=== PATIENT | female | born 1995 | race African-American/Black ===

== ENCOUNTER 2019-01-24 10:02 | Emergency (ER) | payer OTHER ==
[~2019-01-24] VITALS: Ht 172.7 cm; Wt 75.5 kg
[2019-01-24] MEDS ORDERED: LORAZEPAM 1 MG TABLET ONE (10:59)
[2019-01-24] MEDS ORDERED: LORAZEPAM 1 MG TABLET PO ONE (11:00)
--- NOTE | 2019-01-24 11:00 | NUR ---
PATIENT SEEN BY [facility].
--- NOTE | 2019-01-24 11:09 | NUR ---
Social service consult requested by Dr. Bazan for suicidal ideations with a plan to " run into traffic." Pt. is a 23 year old female who was brought to [facility] ED by her friend Alexander for having an anxiety attack with suicidal ideations. SW met with pt. bedside. Pt. is alert and oriented x 3. Pt. appeared very anxious. SW asked pt. to take deep breaths to calm her anxiety. Pt. states she has been paranoid and thinks people are listening to her conversations and following her. Pt. states she has been feeling this way for the past 5 years. Pt. has no prior suicidal attempts or psychiatric hospitalizations. Pt's father Jim Street resides in [place] and can be reached at . Pt. resides with her aunt in [place] and moved from [place] a month ago. Pt. currently works at [employer]. Pt. has a psychiatric diagnosis of Generalized Anxiety Disorder. Pt. is willing to go voluntary to [facility]. SW to fax clinical information to [facility] once lab results are in. DA Mays and Dr. Bazan have been notified of pt's discharge plan. Pt's father Jim will need to be notified regarding where pt. will be discharged. SW informed DA Mays regarding contacting pt's father.
[2019-01-24 11:18] LABS: APPEARANCE,URINE Clear (CLEAR); BILIRUBIN,URINE SMALL (NEGATIVE); BLOOD, URINE Negative Ery/uL (NEGATIVE); COLOR,URINE Yellow (YELLOW); KETONES,URINE >=160 (NEGATIVE); LEUKOCYTE ESTERASE ,URINE Small (NEGATIVE); NITRITE, URINE Negative (NEGATIVE); PH,URINE 6.5 (5.0-8.0); PROTEIN,URINE Trace mg/dl (NEGATIVE); UGLUCOSE Negative (NEGATIVE); UROBILINOGEN,URINE 0.2 EU/dL (0.2)
[2019-01-24 11:20] LABS: BACTERIA,URINE Few /HPF (None Seen); SQUAMOUS EPITHELIAL CELL,UR Few /HPF (None Seen)
[2019-01-24 11:26] LABS: BASOPHILS # (AUTO) 0.1 /CMM (0.0-0.2); BASOPHILS % (AUTO) 0.6 % (0.0-2.0); EOSINOPHILS % (AUTO) 0.2 % (0.0-6.0); HEMATOCRIT 41 % (33-45); LYMPHOCYTES # (AUTO) 1.9 /CMM (0.8-4.8); LYMPHOCYTES % (AUTO) 14.5 % (20.0-44.0); MEAN CORPUSCULAR HGB CONC 35 g/dl (31.0-36.0); MEAN CORPUSCULAR VOLUME 80 fL (82-100); MONOCYTES # (AUTO) 0.9 /CMM (0.1-1.30); MONOCYTES % (AUTO) 6.7 % (2.0-12.0); NEUTROPHILS # (AUTO) 10.1 /CMM (1.8-8.9); PLATELET COUNT (AUTO) 362 /CMM (150-450); RED BLOOD CELL COUNT(AUTO) 5.09 MIL/uL (4.0-5.2); WHITE BLOOD COUNT (AUTO) 12.9 K/uL (4.3-11.0)
[2019-01-24 11:48] LABS: CALCIUM, SERUM 9.8 mg/dL (8.5-10.1); CARBON DIOXIDE 21 mmol/L (21-32); CHLORIDE 102 mmol/L (98-107); GLUCOSE 116 mg/dL (74-106); SODIUM SERUM 140 mmol/L (136-145); UREA NITROGEN, BLOOD 6 mg/dL (7-18)
[2019-01-24 11:53] LABS: ALANINE AMINOTRANSFERASE 21 U/L (12-78); ALBUMIN 4.6 g/dL (3.4-5.0); ALKALINE PHOSPHATASE 66 U/L (46-116); ASPARTATE AMINOTRANSFERASE 23 U/L (15-37); BILIRUBIN,DIRECT 0.3 mg/dL (0.0-0.2); BILIRUBIN,TOTAL 1.5 mg/dL (0.2-1.0); TOTAL PROTEIN, SERUM 8.7 g/dL (6.4-8.2)
[2019-01-24 11:56] LABS: POTASSIUM 2.6 mmol/L (3.5-5.1)
--- NOTE | 2019-01-24 12:00 | NUR ---
MOTHER CALLED AND LEFT CONTACT # [phone]
[2019-01-24 12:29] LABS: ACETAMINOPHEN 0 ug/ml (10-30); ALCOHOL, BLOOD < 3 mg/dL (0-0); SALICYLATE < 0.2 mg/dL (2.8-20.0)
[2019-01-24] MEDS ORDERED: POTASSIUM CHLORIDE 20 MEQ TAB.PRT.SR PO ONE ×2 (13:07→13:30)
--- NOTE | 2019-01-24 13:10 | NUR ---
IAIN received a call from pt's RN Nico informing SW that pt is no longer suicidal and wants to go home. SW met with pt. and her friend Alexander bedside. Pt. states she is feeling much better and is no longer having suicidal ideations. Pt. appeared calm and mood was congruent. Pt. friend Alexander will take pt. to his house and her aunt will pick her up from there. Since pt. resides in [place], IAIN gave pt. the following mental health resources: [facility] ; [facility] , [facility] . No other social service needs are requested at this time. IAIN updated DA Mays regarding SW providing pt. with mental health resources.
--- NOTE | 2019-01-24 13:11 | NUR ---
DENIES SI AT THIS TIME. SPOKE W/ DR BLOCK ABOUT PLAN OF CARE. ANSHUL SPOKE W/ PT FOR PSYCHIATRIC REFFERALS. D/C HOME IN STABLE CONDITION.
[2019-01-24 13:18] VITALS: BP 142/87
== END 2019-01-24 13:19 | disposition home or self-care (01) ==
LOC: ER 10:06
DX: F22 Delusional disorders (principal); F32.9 Major depressive disorder, single episode, unspecified; R45.851 Suicidal ideations
CPT/HCPCS: 36415; 80048; 80076; 80305; 80307; 80329; 81001; 84703; 85025; 99284; G0480; 81000-TC